=== PATIENT | male | born 1990 | race African-American/Black ===

== ENCOUNTER 2016-08-31 10:39 | Emergency (ER) | payer SELFPAY ==
[~2016-08-31] VITALS: Ht 162.6 cm; Wt 68.5 kg
[2016-08-31 10:44] VITALS: Ht 162.6 cm; Wt 68.5 kg
[2016-08-31] MEDS ORDERED: ONDANSETRON (ODT) 4 MG TAB ODT STA (11:26)
[2016-08-31] MEDS ORDERED: ONDA4TAB14 PO (11:28)
--- NOTE | 2016-08-31 13:34 | ERD ---
ER Documentation Chief Complaint Date/Time DATE: 08/31/16 TIME: 13:32 Chief Complaint VOMITING , CHILLS , ANXIETY SINCE LAST NIGHT HPI Patient is a 26-year-old male with no medical problems who presents with vomiting. The patient said that on Wednesday he feels like he "caught something on the plane". The patient denies fevers. He had chills and sweats. He had nausea yesterday. He had no diarrhea. He has had no treatment as of yet. He denies pain. He does not currently have a primary doctor. ROS All systems reviewed and are negative except as per history of present illness. Medications Home Meds Active Scripts Ondansetron (Ondansetron Odt) 4 Mg Tab.rapdis, 4 MG PO Q6H Y for NAUSEA AND/OR VOMITING, #30 TAB Prov:RIAZ NEWMAN MD 08/31/16 PMhx/Soc Medical and Surgical Hx: pt denies Medical Hx History of Surgery: No Anesthesia Reaction: No Hx Neurological Disorder: No Hx Respiratory Disorders: No Hx Cardiac Disorders: No Hx Psychiatric Problems: No Hx Miscellaneous Medical Probl: No Hx Alcohol Use: No Hx Substance Use: No Hx Tobacco Use: No Smoking Status: Never smoker FmHx Family History: No diabetes Physical Exam Vitals Vital Signs Date Time Temp Pulse Resp B/P Pulse Ox O2 Delivery O2 Flow Rate FiO2 08/31/16 10:44 98.0 105 18 157/90 99 Physical Exam Const: No acute distress Head: Atraumatic Eyes: Normal Conjunctiva ENT: Normal External Ears, Nose and Mouth. Neck: Full range of motion..~ No meningismus. Resp: Clear to auscultation bilaterally Cardio: Regular rate and rhythm, no murmurs Abd: Soft, non tender, non distended. Normal bowel sounds Skin: No petechiae or rashes Back: No midline or flank tenderness Ext: No cyanosis, or edema Neur: Awake and alert Psych: Normal Mood and Affect Results 24 hrs Current Medications Medications (Trade) Dose Ordered Sig/Jairon Route PRN Reason Start Time Stop Time Status Last Admin Dose Admin Ondansetron HCl (Zofran Odt) 4 mg ONCE STAT ODT 08/31/16 11:26 08/31/16 11:27 DC 08/31/16 11:33 Procedures/MDM Patient is a 26-year-old male with no medical problems who presents with vomiting. He is otherwise well-appearing and well-hydrated in the emergency department. His abdominal exam is benign without pain. I believe outpatient management is appropriate but the patient will need to follow-up closely with her primary doctor at the local clinics within 24 hours for evaluation. He will be given Zofran in the emergency department and a prescription for Zofran. I believe this is most likely a viral syndrome and I do not believe he requires further workup or antibiotics at this time. Departure Diagnosis: Primary Impression: Vomiting Vomiting type: unspecified Vomiting Intractability: non-intractable Nausea presence: with nausea Qualified Code: R11.2 - Non-intractable vomiting with nausea, unspecified vomiting type Condition: Fair Patient Instructions: Vomiting (4Y-Adult) Referrals: [facility] YOU HAVE RECEIVED A MEDICAL SCREENING EXAM AND THE RESULTS INDICATE THAT YOU DO NOT HAVE A CONDITION THAT REQUIRES URGENT TREATMENT IN THE EMERGENCY DEPARTMENT. FURTHER EVALUATION AND TREATMENT OF YOUR CONDITION CAN WAIT UNTIL YOU ARE SEEN IN YOUR DOCTORS OFFICE WITHIN THE NEXT 1-2 DAYS. IT IS YOUR RESPONSIBILITY TO MAKE AN APPOINTMENT FOR FOLOW-UP CARE. IF YOU HAVE A PRIMARY DOCTOR --you should call your primary doctor and schedule an appointment IF YOU DO NOT HAVE A PRIMARY DOCTOR YOU CAN CALL OUR PHYSICIAN REFERRAL HOTLINE AT IF YOU CAN NOT AFFORD TO SEE A PHYSICIAN YOU CAN CHOSE FROM THE FOLLOWING [facility] [address] [facility]. [facility] [address] [facility] [facility] [address] [facility] [facility] [address] [facility]. [facility] [address] [facility]. [facility]. [address] Additional Instructions: Call your primary care doctor TOMORROW for an appointment during the next 1-2 days.See the doctor sooner or return here if your condition worsens before your appointment time. RIAZ NEWMAN MD Aug 31, 2016 13:33
== END 2016-08-31 12:04 | disposition home or self-care (01) ==
LOC: FTE 10:39
DX: R11.10 Vomiting, unspecified (principal)
CPT/HCPCS: 99283